=== PATIENT | male | born 1955 | race Caucasian/White ===

== ENCOUNTER 2017-08-06 11:43 | Emergency (ER) | payer BC ==
[2017-08-06 12:52] LABS: ABS Basophils 0.1 10^3/ul (0-0.2); ABS Eosinophils 0.3 10^3/ul (0-0.6); ABS Lymphocytes 1.1 10^3/ul (1.0-4.8); ABS Monocytes 0.9 10^3/ul (0-0.8); ABS Neutrophils 5.8 10^3/ul (1.5-7.7); ABS Nucleated RBC 0 10^3/ul; Eosinophil % 3.4 % (0-6); Hematocrit 42 % (42-52); Hemoglobin 14.3 g/dl (14.0-18.0); Lymphocyte % 13.5 % (25-47); Mean Corpuscular HGB Conc 35 g/dl (31-36); Mean Corpuscular Hemoglobin 31 pg (27-31); Mean Corpuscular Volume 89 fL (80-94); Mean Platelet Volume 8.3 um3 (7.4-10.4); Nucleated Red Blood Cells % 0; Platelet Count 238 10^3/ul (150-450); Red Blood Count 4.65 10^6/ul (4.0-5.4); Red Cell Distribution Width 13 % (10.5-15); White Blood Count 8.2 10^3/ul (3.5-10.8)
[2017-08-06] MEDS ORDERED: Meclizine TAB* 12.5 MG PO ONE (13:04)
[2017-08-06 13:11] LABS: INR 0.87 (0.77-1.02)
[2017-08-06 13:20] LABS: EGFR Non-African American 55.3 (>60)
[2017-08-06] MEDS ORDERED: Iodixanol* (CONTRAST) 320 MG/ML 100 ML SDV IV ONE (13:31)
--- NOTE | 2017-08-06 14:46 | RAD ---
Indication: Headaches and neck pain after chiropractor. Contrast: Administered 80.2 ml of VISAPAQUE 320 mg/ml CTA of the neck and head was performed after IV contrast administration. Coronal and sagittal reconstructed images were obtained. A noncontrast CT of the head was initially performed. CT of the brain was performed without IV contrast. Jugular structures are midline. No midline shift is noted. The extra-axial spaces are unremarkable. There is no evidence of intracranial mass or hemorrhage. No other high or low density lesions are identified. Mastoid air cells and paranasal sinuses are unremarkable. CTA of the neck and head was performed after IV contrast administration. The origins of the great vessels are unremarkable. Bilaterally the common carotid arteries demonstrates no evidence of significant stenosis or intimal wall thickening. No evidence of plaque is noted in the carotid bulbs bilaterally. The internal carotid artery neck demonstrates no evidence of carotid artery dissection. No evidence of stenosis is noted. The vertebral arteries demonstrate vertebral arteries to be patent bilaterally. No evidence of stenosis is noted. No evidence of vertebral artery dissection is noted. Intracranial circulation demonstrates intracavernous portion of the internal carotid arteries to be unremarkable. Normal bifurcation is noted bilaterally with normal A1 and M1 segments. Anterior cerebral artery and middle cerebral arteries are unremarkable with no evidence of aneurysmal dilatation or branch occlusion. The posterior cerebral arteries, basilar arteries are grossly unremarkable. No aneurysmal dilatation or branch occlusion is noted. The lung apices demonstrates no focal nodules. Soft tissues of the neck demonstrates scattered small lymph nodes. Parotid glands and submandibular glands are unremarkable. The cervical spinal structures demonstrates multilevel degenerative disc disease in satisfactory alignment. IMPRESSION: No intracranial mass or hemorrhage. No evidence of carotid artery stenosis or dissection. Vertebral arteries demonstrates no evidence of vertebral artery dissection. Intracranial circulation demonstrates no evidence of branch occlusion or aneurysmal dilatation.
--- NOTE | 2017-08-06 17:16 | RAD ---
INDICATION: Vertigo. COMPARISON: Comparison is made with a prior MRI of the brain from June 16, [address] angiogram of the head and neck and CT of the brain from August 06, 2017. TECHNIQUE: Sagittal T1, axial T1, T2, susceptibility, FLAIR and diffusion weighted images were obtained. FINDINGS: The ventricles, cisterns and sulci appear to be within normal limits. No significant focal abnormality or mass effect is seen. No areas of restricted diffusion are present. There is no evidence for infarct or hemorrhage. There is opacification of the left maxillary sinus. The paranasal sinuses and mastoid air cells otherwise appear clear. IMPRESSION: 1. NO EVIDENCE FOR ACUTE INTRACRANIAL ABNORMALITY. 2. OPACIFICATION OF THE LEFT MAXILLARY SINUS.
--- NOTE | 2017-08-06 17:25 | RAD ---
INDICATION: Vertigo and neck pain COMPARISON: Same day CT of the head and neck that did not identify any acute abnormalities TECHNIQUE: Coronal T2, sagittal T1, inversion recovery, T2, and axial T1, T2, and gradient echo images were acquired. FINDINGS: The sella and craniocervical junction appear unremarkable. There are no intrinsic abnormalities of the cord. There is a mild degree of straightening of the normal cervical lordosis. Otherwise the cervical vertebrae are normally aligned. The atlantodental interval is normal. Axial view images: Less otherwise specified below there is no significant central canal stenosis or neural foraminal stenosis. C2-C3: There is no significant central canal or neural foraminal stenoses. C3-C4: Broad-based disc protrusion combining with facet arthropathy and mild uncovertebral hypertrophy to cause a mild degree of central canal stenosis. C4-C5: Broad-based disc protrusion extending to the subarticular region bilaterally causing a mild degree of central canal stenosis and combining with facet arthropathy to cause mild left neural foraminal stenosis. C5-C6: Broad-based disc protrusion, abutting the left of midline ventral spinal cord, combining with facet arthropathy and mild uncovertebral hypertrophy to cause a mild degree of central canal stenosis. C6-C7: Broad-based disc protrusion abutting the ventral spinal cord combining with facet arthropathy and uncovertebral hypertrophy to cause a mild degree of central canal stenosis. C7-T1: There is no significant central canal or neural foraminal stenoses. IMPRESSION: Degenerative disc disease of the cervical spine.
--- NOTE | 2017-08-06 18:04 | ED ---
[place] Guerin Emily, scribed for Jonny Alejo MD on 08/06/17 at 1305 . Dizziness - HPI Summary HPI Summary: This patient is a 62 year old M presenting to [facility] accompanied by friend with a chief complaint of waxing and waning vertigo that began at 0930 today. The patient rates the pain 5/10 in severity. Symptoms aggravated by nothing. Symptoms alleviated by nothing. Patient reports L-sided CP (sharp, resolved), stiff neck, fatigue, cold sweats (resolved), and indigestion (burping and shoulder pain) that all began yesterday. Pt reports that an occipital PERALTA began today at the same time as the vertigo. Pt denies any changes in vision and slurred speech. - History Of Current Complaint Chief Complaint: EDDizziness Stated Complaint: CHEST PAIN Time Seen by Provider: 08/06/17 12:14 Hx Obtained From: Patient Onset/Duration: Still Present Timing: Constant Severity Initially: Moderate Severity Currently: Moderate Character: Room Spinning Aggravating Factor(s): Nothing Alleviating Factor(s): Nothing Associated Signs And Symptoms: Positive: Other: - Positive L-sided CP (sharp, resolved), stiff neck, fatigue, cold sweats (resolved), indigestion, and an occipital PERALTA began today at the same time as the vertigo. Negative any changes in vision and slurred speech. - Allergies/Home Medications Allergies/Adverse Reactions: Allergies Allergy/AdvReac Type Severity Reaction Status Date / Time Gadolinium-Containing Allergy Anxiety Verified 08/06/17 13:14 Contrast Medi Penicillins Allergy Unknown Verified 08/06/17 11:56 Reaction Details gadobenate Allergy Swelling Uncoded 08/06/17 11:56 Of Face,Lips,& Throat Home Medications: Home Medications Albuterol Sulfate [Ventolin Hfa] 2 puff INH SEE INSTRUCTIONS PRN 08/06/17 [ History Confirmed 08/06/17] Cabergoline [Cabergoline] 0.5 mg PO DAILY 08/06/17 [History Confirmed 08/06/17] Fluticasone HFA 220 mcg(NF) [Flovent Hfa 220 Mcg(NF)] 1 puff INH DAILY 08/06/17 [History Confirmed 08/06/17] Venlafaxine EXT RELEASE CAP* [Effexor Xr CAP*] 37.5 mg PO DAILY 08/06/17 [ History Confirmed 08/06/17] PMH/Surg Hx/FS Hx/Imm Hx Previously Healthy: No Endocrine/Hematology History: Denies: Hx Diabetes Cardiovascular History: Denies: Hx Hypertension, Hx Pacemaker/ICD Respiratory History: Reports: Hx Asthma - CONTROL WITH INHALER History: Reports: Hx Kidney Stones - LAST ONE 2001-PASSED/ Denies: Hx Dialysis, Hx Renal Disease - HAS ONLY ONE KIDNEY Comment Only: Other Problems/Disorders - 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. 2007 & 01/2012 RIGHT KNEE AR[place]ROSCOPY[place] [facility] [place] Anesthesia Reactions: No - Immunization History Immunizations Up to Date: Yes Infectious Disease History: No Infectious Disease History: Denies: Traveled Outside the in Last 30 Days - Family History Known Family History: Positive: Other - Negative anesthesia reaction - Social History Occupation: Employed Full-time Lives: With Family Alcohol Use: Rare Substance Use Type: Reports: None Smoking Status (MU): Never Smoked Tobacco Review of Systems Positive: Fatigue, Skin Diaphoresis Eyes: Other - Negative changes in vision Positive: Chest Pain Positive: Other - Positive indigestion Positive: Other - Positive neck pain Neurological: Other - Positive vertigo. Positive: Headache. Negative: Slurred Speech All Other Systems Reviewed And Are Negative: Yes Physical Exam - Summary Physical Exam Summary: Appearance: The patient is well-nourished in no acute distress and in no acute pain. Skin: The skin is warm and dry and skin color reflects adequate perfusion. HEENT: The head is normocephalic and atraumatic. The pupils are equal and reactive. The conjunctivae are clear and without drainage. Nares are patent and without drainage. Mouth reveals moist mucous membranes and the throat is without erythema and exudate. The external ears are intact. The ear canals are patent and without drainage. The tympanic membranes are intact. Neck: the neck is supple with full range of motion and non-tender. There are no carotid bruits. There is no neck vein distension. Respiratory: Chest is non-tender. Lungs are clear to auscultation and breath sounds are symmetrical and equal. Cardiovascular: Heart is regular rate and rhythm. There is no murmur or rub auscultated. There is no peripheral edema and pulses are symmetrical and equal. Abdomen: The abdomen is soft and non-tender. There are normal bowel sounds heard in all four quadrants and there is no organomegaly palpated. Musculoskeletal: There is no back tenderness noted. Extremities are non-tender with full range of motion. There is good capillary refill. There is no peripheral edema or calf tenderness elicited. Neurological: Patient is alert and oriented to person, place and time. The patient has symmetrical motor strength in all four extremities. Cranial nerves are grossly intact. Deep tendon reflexes are symmetrical and equal in all four extremities. Psychiatric: The patient has an appropriate affect and does not exhibit any anxiety or depression. Triage Information Reviewed: Yes Vital Signs On Initial Exam: Initial Vitals Temp Pulse Resp BP Pulse Ox 97.9 F 57 20 121/73 96 08/06/17 11:44 08/06/17 11:44 08/06/17 11:44 08/06/17 11:44 08/06/17 11:44 Vital Signs Reviewed: Yes Diagnostics - Vital Signs Vital Signs Temp Pulse Resp BP Pulse Ox 08/06/17 11:44 97.9 F 57 20 121/73 96 - Laboratory Lab Results: Lab Results 08/06/17 Range/Units 12:46 WBC 8.2 (3.5-10.8) 10^3/ul RBC 4.65 (4.0-5.4) 10^6/ul Hgb 14.3 (14.0-18.0) g/dl Hct 42 (42-52) % MCV 89 (80-94) fL MCH 31 (27-31) pg MCHC 35 (31-36) g/dl RDW 13 (10.5-15) % Plt Count 238 (150-450) 10^3/ul MPV 8.3 (7.4-10.4) um3 Neut % (Auto) 70.6 (38-83) % Lymph % (Auto) 13.5 L (25-47) % [place] % (Auto) 11.1 H (0-7) % Eos % (Auto) 3.4 (0-6) % Baso % (Auto) 1.4 (0-2) % Absolute Neuts (auto) 5.8 (1.5-7.7) 10^3/ul Absolute Lymphs (auto) 1.1 (1.0-4.8) 10^3/ul Absolute Monos (auto) 0.9 H (0-0.8) 10^3/ul Absolute Eos (auto) 0.3 (0-0.6) 10^3/ul Absolute Basos (auto) 0.1 (0-0.2) 10^3/ul Absolute Nucleated RBC 0 10^3/ul Nucleated RBC % 0 Result Diagrams: 08/06/17 12:46 08/06/17 12:46 Lab Statement: Any lab studies that have been ordered have been reviewed, and results considered in the medical decision making process. - CT Head and neck CTA CT Interpretation Completed By: Radiologist - Head and neck CTA reveals, per radiologist, No intracranial mass or hemorrhage. No evidence of carotid artery stenosis or dissection. Vertebral arteries demonstrates no evidence of vertebral artery dissection. Intracranial circulation demonstrates no evidence of branch occlusion or aneurysmal dilatation. ED physician has reviewed this radiology report. - EKG 1137 Cardiac Rate: Bradycardia EKG Rhythm: Sinus Rhythm - [address] Segment: Normal Ectopy: None - Additional Comments Diagnostic Additional Comments: Cervical spine MRI reveals, per radiologist, degenerative disc disease of the cervical spine. ED physician has reviewed this radiology report. Brain CT reveals, per radiologist, 1. NO EVIDENCE FOR ACUTE INTRACRANIAL ABNORMALITY. 2. OPACIFICATION OF THE LEFT MAXILLARY SINUS. ED physician has reviewed this radiology report. Dizzy Course/Dx - Course Course Of Treatment: Mr. Dumont presented complaining of an occipital headache and vertigo symptoms. He also complained of a great deal of neck pain for the last 24 hours or so and I was concerned about possible dissection. CTA was negative as well as were labs and I consulted with Dr. Ramirez. He came and saw the patient and recommended MRI scan. He felt that if the MRI was negative, that the patient was safe to go home. By that time I had given the patient meclizine for his vertigo and it helped quite a bit. MRIs were negative and he was discharged in stable condition diagnosis of peripheral vertigo and degenerative disc disease. - Diagnoses Provider Diagnoses: Peripheral vertigo, Degenerative disc disease - Provider Notifications Discussed Care Of Patient With: Faye Leiva Time Discussed With Above Provider: 14:50 Instructed by Provider To: Other - Consult with Dr. Leiva (neurology) at 1450. He agrees to see the patient in the ED. Consult with Dr. Leiva (neurology) at 1530. He recommends an MRI. Discharge - Sign-Out/Discharge Documenting (check all that apply): Discharge/Admit/Transfer - discharge home - Discharge Plan Condition: Stable Disposition: HOME Patient Education Materials: Vertigo (ED), Degenerative Disc Disease (ED) Referrals: Ade Cat MD [Primary Care Provider] - 3 Days Additional Instructions: RETURN TO THE EMERGENCY DEPARTMENT FOR NEW OR WORSENING SYMPTOMS - Billing Disposition and Condition Condition: STABLE Disposition: HOME The documentation as recorded by the [place] colon Emily accurately reflects the service I personally performed and the decisions made by me, Jonny Alejo MD.
[2017-08-06 18:09] VITALS: BP 124/78
--- NOTE | 2017-08-07 00:36 | CONS ---
NEUROLOGY CONSULTATION REPORT: DATE OF CONSULTATION: 08/06/17. CONSULTING PROVIDER: J Luis Alejo MD. REASON FOR CONSULT: Sudden onset vertigo. CHIEF COMPLAINT: I had a bout of vertigo today and heartburn. HISTORY OF PRESENT ILLNESS: This is a 62-year-old man, who has history of asthma, depression, who stacy d a sudden onset of vertigo that started at 9 a.m. today. The patient is a elementary school counselor. He wo rked for 3 hours this morning. He got up after work and then suddenly had this spinning sensation wh ile he was in a stationary position. The spinning sensation was counterclockwise. This did not occu r while he was driving. He was able to drive himself to his chiropractor 30 minute later, who did ne ck adjustments. The vertigo increased and worsened. He denied any focal weakness or paresthesias. He felt detached out of his head. The vertigo seems to have significantly decreased over the last fe w hours. Lying flat or standing exacerbates the symptoms. Sitting straight with limited neck moveme nts improves the symptoms. He denied any hearing loss or tinnitus. The patient yesterday was workin g on placing sidra in his home which he does not typically do. There was also associated symptoms of headaches, which he described as occipital pain 7/10 in severity and is currently now 2/10 in [facility]. The pain is sharp and nonradiating, and not associated with any photo or phonophobia. He als o has chronic neck pain without any radiating features. Typically, he has 1-2 headaches every other months, but does not have any diagnosis of migraines. A CTA of the head and neck was obtained and there was no evidence of intracranial mass, occlusion, or dissection. I personally reviewed the studies. The patient does endorse 3-4 day history of upper respiratory tract infection and excessive coughing and some mild sinus congestion. The patient also complained of indigestion, heartburn, as well as le ft-sided chest pain that has subsided now. PAST MEDICAL HISTORY: 1. Asthma. 2. One kidney, as he donated a kidney 15 years ago. 3. Depression. MEDICATIONS: 1. Albuterol. 2. Cephalexin. 3. Fluticasone. 4. Cabergoline. ALLERGIES: GADOLINIUM, PENICILLIN, although the allergy for GADOLINIUM is anxiety, I suspect this is related to claustrophobia secondary to the MRI. FAMILY HISTORY: Father suffered from cancer. Mother had metastatic cancer to the brain. The patient had lost his father in March of 2017, but he has no stressors. 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 He denied an y tobacco or alcohol use. He is with 2 children. REVIEW OF SYSTEMS: A 14-point review of systems was obtained and otherwise negative except for what was mentioned in the HPI. PHYSICAL EXAMINATION: Vitals: Temperature of 97.9, pulse of 57, respirations of 20, oxygen saturati on of 96, and blood pressure 121/73. General: Well-nourished, well-developed man, in no acute distr ess. He appears his stated age. Head: Normocephalic, atraumatic without obvious abnormalities. Eye s: Conjunctivae/corneas were clear. Neck: Supple and symmetrical. No carotid bruit. Lungs: Clear to auscultation bilaterally, non-labored breathing. Cardiovascular: Regular rate and rhythm. Normal S1, S2. Extremities: Normal range of motion with no cyanosis. Skin: No skin lesions or laceratio ns. Psych: Affect is broad and normal mood. Easy to establish rapport. Neurological Examination: Mental status: Awake, alert, oriented to person, place, time, and general circumstances. Speech and language including expression, naming, repetition, and comprehensions were assessed and found to be normal. Cranial Nerves: Normal confrontation bilaterally. Pupils are midrange and reactive to ligh t. Normal consensual response. Extraocular muscles are intact with no ptosis. Sensation is intact on the forehead, cheeks, and jaw region bilaterally. No facial asymmetry. Able to hear throughout t he history process. There is symmetrical palatal elevation. Normal strength against resistance to sh oulder shrug. Tongue is symmetrical and midline with no anterior fasciculation. Motor, right/left, no abnormal movements. No pronator drift. Normal bulk and tone throughout. No fasciculation. Neck extension is 5. Shoulder range of motion is full. No Spurling sign bilaterally. HEENT is negative. Shoulder abduction 5/5. Elbow flexion 5/5, extension 5/5. Wrist flexion 5/5, extension 5/5. All ot her upper and lower extremity subgroup muscles were checked and are 5/5. Reflexes: Brachioradialis 2/2, biceps 2/2, triceps 2/2, patella 2/2, ankle 1/1. Plantar flexor/flexor. Sensation is intact to light touch throughout. Normal vibration and proprioception at the great toes. Coordination: Anh l [id number] and rapid alternating movement. Gait and station: Narrow based. Normal stance and gait. No ataxia. LABS AND IMAGING: As discussed in the HPI. The patient had a sodium of 136 and a creatinine of 1.32 . TSH was 1.70. ASSESSMENT: 1. Mr. Álvaro Dumont is a 62-year-old left-handed man, who presented with new onset of vertigo associat ed with headaches and cervicalgia - He has no risk factors for transient ischemic attack or stroke. His symptoms resolved. His ABCD score is 0. I suspect the cause of the vertigo can be a vestibular d ysfunction given in the setting of an upper respiratory tract infection or a benign paroxysmal positi onal vertigo given that he was recently doing some exertional activity yesterday by placing the hardw ood sidra at home. Again, my suspicion for a pontine infarct is low. Other differential diagnose s include vestibular migraine headaches given he has headaches, although not migrainous as his part o f his history. He has not taken any medications that may cause vertigo. 2. Cervicalgia and cervical spondylosis - The patient has never had any workup for any cervical spon dylosis in the past. He has no myelopathy on examination. Reassuringly, he has no radiculopathy on e xamination. Rarely, there are cases of vertigo associated with cervical spondylosis. 3. Chest pain and gastroesophageal reflux disease - I defer to the primary team. RECOMMENDATIONS: I recommend obtaining an MRI of the brain and cervical spine without contrast to ev aluate for any, although low on the differential, schwannomas or small pontine lesion or degenerative disk disease in the spinal cord in the cervical spine. Neuro checks every 4 hours. If the MRIs are negative and given that the patient is currently asymptomatic, I do not recommend admission at this point. I recommend neck exercises that were provided to the patient. He should hold off from seeing a chiropractor for now. There is no evidence of a vertebral artery dissection on the CTA. Neurolog y will continue to follow. Please call me for further recommendations once the MRIs result. TIME SPENT: I spent a total of 70 minutes and greater than 50% of that was spent directly reviewing the medical chart, obtaining history, examining the patient, and discussing the treatment plan and pr ognosis. I suspect, he will continue to improve and hopefully with time this will go away. [id number]/[facility] #: [id number]
== END 2017-08-06 18:09 | disposition home or self-care (01) ==
LOC: ED 11:43
DX: H81.399 Other peripheral vertigo, unspecified ear (principal); M50.323 Other cervical disc degeneration at C6-C7 level; M50.223 Other cervical disc displacement at C6-C7 level; M12.9 Arthropathy, unspecified; R07.9 Chest pain, unspecified; J45.909 Unspecified asthma, uncomplicated; Z90.5 Acquired absence of kidney; Z88.0 Allergy status to penicillin; Z91.041 Radiographic dye allergy status
CPT/HCPCS: 36415; 70496; 70498; 70551; 72141; 80053; 83605; 84443; 84484; 85025; 85610; 93005; 99282; A9270-GY; Q9967

== ENCOUNTER 2022-01-22 07:30 | Observation (INO) ==
[~2022-01-22 07:30] MED LIST: Buffered Lidocaine 1% SYRIN 1 ml INTRADERM ONE; Lactated Ringers 1000 ml BAG 1,000 ML IV SCH; Naloxone 0.4 mg VIAL 0.4 mg/ml 1 ml VIAL IV PRN; Ondansetron 4 mg VIAL 2 MG/ML 2 ml VIAL IV PRN; fentaNYL 100 mcg/2 ml 50 MCG/ML VIAL IV PRN
[2022-01-22] MEDS ORDERED: Clindamycin 900 MG/D5W BAG 900 MG/50 ML BAG IVPB ONE (12:30)
[2022-01-22] MEDS ORDERED: Bupivacaine 0.5% SDV PF 30ML VIAL ONE (13:12)
[2022-01-22] MEDS ORDERED: Dexamethasone IV 4 MG/ML VIAL 1 ml VIAL ONE ×2 (13:12→17:00)
[2022-01-22] MEDS ORDERED: Lidocaine 2% PF 5 ML VIAL ONE (13:12)
[2022-01-22] MEDS ORDERED: Midazolam 2 mg/2 ml VIAL 1 mg/ml 2 ml VIAL (2 mg) ONE (13:12)
[2022-01-22] MEDS ORDERED: Levalbuterol 1.25MG/0.5ML NEB.SOL INH ONE (13:29)
[2022-01-22] MEDS ORDERED: Levalbuterol 1.25MG/0.5ML NEB.SOL ONE (14:07)
[2022-01-22] MEDS ORDERED: ROPIVACAINE 5 MG/ML 30 ML BTL (0.5%) ONE (14:10)
[2022-01-22] MEDS ORDERED: fentaNYL 100 mcg/2 ml 50 MCG/ML VIAL ONE (14:52)
[2022-01-22] MEDS ORDERED: Ondansetron 4 mg VIAL 2 MG/ML 2 ml VIAL IV PRN (15:37)
[2022-01-22] MEDS ORDERED: Lactulose 30 ml UDC PO PRN (15:37)
[2022-01-22] MEDS ORDERED: Magnesium Hydroxide LIQ 30 ML UDC PO PRN (15:37)
[2022-01-22] MEDS ORDERED: Ondansetron ODT 4 mg TAB 4 MG TAB PO PRN (15:37)
[2022-01-22] MEDS ORDERED: Morphine 2 MG/ML SYRINGE IV PRN (15:37)
[2022-01-22] MEDS ORDERED: Clindamycin 600 MG/D5W BAG 600 MG/50 ML BAG IV SCH (16:00)
[2022-01-22] MEDS ORDERED: Ondansetron 4 mg VIAL 2 MG/ML 2 ml VIAL ONE (17:00)
[2022-01-22] MEDS ORDERED: Albuterol HFA INHALER 8 gm MDI INH PRN (18:27)
[2022-01-22] MEDS: Lactated Ringers 1000 ml BAG 1,000 ML IV SCH (18:51)
[2022-01-22] MEDS: Fluticasone NASAL SPRAY 50MCG 16 gm SPRAY BTL INTRANASAL SCH (20:32)
[2022-01-22] MEDS: Magnesium Hydroxide LIQ 30 ML UDC PO SCH (20:33)
[2022-01-22] MEDS ORDERED: Mometasone/Formoter 200/5 MDI INH SCH (21:00)
[2022-01-22] MEDS ORDERED: NFT: Mirabegron 50 mg ER TAB (NF) PO SCH (21:00)
[2022-01-22] MEDS: Clindamycin 600 MG/D5W BAG 600 MG/50 ML BAG IV SCH (22:37)
[2022-01-23 01:18] LABS: ABS Lymphocytes 0.8 10^3/ul (1.0-4.8); ABS Monocytes 0.9 10^3/ul (0-0.8); ABS Neutrophils 12.2 10^3/ul (1.5-7.7); Hematocrit 40 % (42-52); Hemoglobin 13.4 g/dL (14.0-18.0); Lymphocyte % 5.9 %; Mean Corpuscular HGB Conc 33 g/dL (31-36); Mean Corpuscular Hemoglobin 31 pg (27-31); Mean Corpuscular Volume 92 fL (80-94); Mean Platelet Volume 8.8 fL (7.4-10.4); Platelet Count 238 10^3/uL (150-450); Red Blood Count 4.39 10^6 /uL (4.18-5.48); Red Cell Distribution Width 14 % (10-15)
[2022-01-23 02:00] LABS: Calcium 8.9 mg/dL (8.6-10.3); Potassium 4.6 mmol/L (3.5-5.0); eGFR CKD-EPI 72.6 (>60)
[2022-01-23] MEDS: Lactated Ringers 1000 ml BAG 1,000 ML IV SCH (05:23)
[2022-01-23] MEDS: Clindamycin 600 MG/D5W BAG 600 MG/50 ML BAG IV SCH ×2 (06:18→13:00)
[2022-01-23] MEDS: Magnesium Hydroxide LIQ 30 ML UDC PO SCH (07:52)
[2022-01-23] MEDS: Fluticasone NASAL SPRAY 50MCG 16 gm SPRAY BTL INTRANASAL SCH (07:57)
[2022-01-23] MEDS ORDERED: Vitamin THERAPEUTIC TAB PO SCH (09:00)
[2022-01-23] MEDS ORDERED: Venlafaxine XR 75 mg PO SCH (09:00)
[2022-01-23] MEDS ORDERED: Mometasone/Formoter 200/5 MDI INH SCH (09:00)
[2022-01-23 11:20] VITALS: BP 112/65
[2022-01-25] MEDS ORDERED: [UNRECOGNIZED DRUG - OTHER] PO SCH (21:00)
== END 2022-01-23 13:50 | disposition home or self-care (01) ==
LOC: AA 12:04 → INTOOBSV 12:04 → SSU 15:37
PROVIDERS: ADMIT Orthopaedic Surgery Adult Reconstructive Orthopaedic Surgery; ATTEND Orthopaedic Surgery Adult Reconstructive Orthopaedic Surgery